=== PATIENT | male | born 1985 | race Caucasian/White ===

== ENCOUNTER 2018-05-07 15:42 | Observation (INO) ==
[2018-05-07 16:41] LABS: Eosinophils # 0.1 K/mcL (0.0-0.6); Hematocrit 51.1 % (37.5-50.1); Hemoglobin 17.7 g/dL (12.9-16.9); Mean Corpuscular HGB Conc 34.6 g/dL (31.6-35.5); Mean Corpuscular Hemoglobin 30.3 pg (28.0-33.3); Mean Corpuscular Volume 87.4 fL (83.0-100.0); Mean Platelet Volume 10.3 fL (9.4-12.4); Platelet Count 207 K/mcL (140-400); Red Blood Count 5.85 M/mcL (4.19-5.50)
--- NOTE | 2018-05-07 17:02 | Emergency Department Note ---
Disposition Clinical Impression: Hepatitis Disposition: Admitted As Inpatient Condition: Good Referrals: NONE,PCP [Primary Care Provider] - BRASS MOLDER MIZER [Other] Forms: ED Satisfaction Letter, Work/School Release Time of Disposition: 19:13 General Adult HPI - General Chief complaint: ED Abdominal Pain Stated complaint: Kidney problems Time Seen by Provider: 05/07/18 16:36 Source: patient Mode of arrival: ambulatory Limitations: no limitations - History of Present Illness HPI Narrative: This is a 33-year-old male who comes to emergency department reporting dark urine that has developed over the course of the last 7 days, accompanied by right flank pain that so worsened over the 7 days. He had vomiting 2 days ago after eating at a fast food restaurant, but feels better now. Pain Scale: 7 - Related Data Allergies Allergy/AdvReac Type Severity Reaction Status Date / Time No Known Allergies Allergy Verified 05/07/18 15:48 All systems ED: reviewed and negative except as stated. Gastrointestinal: Reports: abdominal pain, nausea, vomiting Physical Exam - General Limitations: no limitations General appearance: alert, in distress (In mild distress with right flank pain) - Head Head exam: atraumatic, normocephalic, normal inspection - Eye Eye exam: Present: normal appearance, PERRL, EOMI, scleral icterus. Absent: conjunctival injection - Chest Chest inspection: Present: normal inspection, symmetric chest wall rise - Respiratory Respiratory exam: Present: normal lung sounds bilaterally - Cardiovascular Cardiovascular exam: Present: regular rate, normal rhythm, normal heart sounds - Abdominal Exam Abdominal exam: Present: soft, Non-Tender - Extremities Exam Extremities exam: Present: normal inspection, full ROM. Absent: tenderness, pedal edema - Back Exam Back exam: Present: CVA tenderness (R). Absent: CVA tenderness (L) - Neurological Exam Neurological exam: Present: alert, oriented X3 - Psychiatric Psychiatric exam: Present: normal affect, normal mood - Skin Skin exam: Present: warm, dry, intact, normal color Course Course Narrative: This is a 33-year-old male with dark urine concerning for metabolic problems. Vital Signs Temperature 98.8 F 05/07/18 15:46 Pulse Rate 95 05/07/18 15:46 Respiratory Rate 16 05/07/18 15:46 Blood Pressure 137/82 05/07/18 15:46 O2 Sat by Pulse Oximetry 97 05/07/18 15:46 Temperature 98.8 F 05/07/18 15:46 Pulse Rate 95 05/07/18 15:46 Respiratory Rate 16 05/07/18 15:46 Blood Pressure 137/82 05/07/18 15:46 O2 Sat by Pulse Oximetry 97 05/07/18 15:46 Oxygen Delivery Oxygen Delivery Room Air Medical Decision Making - MDM Narrative Medical decision making narrative: I discussed this case with Dr. Celestin, who recommended an MRCP and also recommended a hepatitis panel. Hepatitis panel and IV fluid was ordered, and I discussed his case with the on- call hospitalist, who accepted him for admission. - Lab Data Lab results reviewed: Yes I reviewed the patient's lab results. Lab results narrative: CBC shows hemoconcentration at 17.7 and 51.1 BMP was unremarkable LFT was grossly abnormal with an AST elevated at 1763, a LT elevated greater than 500, and bilirubin elevated at 6.3 Result diagrams: 05/07/18 16:29 05/07/18 16:29 Lab Results 05/07/18 05/07/18 05/07/18 Range/Units 16:29 16:29 16:52 WBC 6.8 (4.3-11.1) K/mcL RBC 5.85 H (4.19-5.50) M/mcL Hgb 17.7 H (12.9-16.9) g/dL Hct 51.1 H (37.5-50.1) % MCV 87.4 (83.0-100.0) fL MCH 30.3 (28.0-33.3) pg MCHC 34.6 (31.6-35.5) g/dL RDW 14.0 (11.5-14.5) % Plt Count 207 (140-400) K/mcL MPV 10.3 (9.4-12.4) fL Seg Neutrophils % 55.0 % Lymphocytes % 41.0 % Monocytes % 3.0 % Eosinophils % 1.0 % Neutrophils # 3.7 (1.6-8.9) K/mcL Lymphocytes # 2.8 (0.6-4.6) K/mcL Monocytes # 0.2 (0.0-1.3) K/mcL Eosinophils # 0.1 (0.0-0.6) K/mcL Reactive Lymphocytes Present A (Not Present) Platelet Estimate Normal (Normal) Sodium 136 (136-145) mEq/L Potassium 3.5 (3.5-5.1) mEq/L Chloride 102 (98-107) mEq/L Carbon Dioxide 26 (23-29) mEq/L BUN 6 (6-20) mg/dL Creatinine 0.71 (0.70-1.30) mg/dL Est GFR ( Amer) > 60 (> 60) Est GFR (Non-Af Amer) > 60 (> 60) BUN/Creatinine Ratio 8 (6-26) Glucose 118 H (70-105) mg/dL Calculated Osmolality 281 (280-300) Calcium 8.7 (8.6-10.3) mg/dL Total Bilirubin 6.3 H (0.3-1.0) mg/dL Direct Bilirubin 4.9 H (0.0-0.2) mg/dL Indirect Bilirubin 1.4 H (0.0-1.2) mg/dL AST 1763 H (13-39) Units/L ALT > 500 H (7-52) Units/L Alkaline Phosphatase 194 H (34-104) Units/L Creatine Kinase 58 (30-223) Units/L Serum Total Protein 7.0 (6.4-8.9) g/dL Albumin 3.6 (3.5-5.7) g/dL Globulin 3.4 (2.4-3.5) g/dL Albumin/Globulin Ratio 1.1 (1.1-2.2) Lipase 23 (11-82) Units/L Urine Color Dark Yellow (Yellow) Urine Clarity Slightly Cloudy A (Clear) Urine pH 6.5 (5.0-8.0) pH Units Ur Specific [place] 1.020 (1.010-1.025) Urine Protein 100 H (Neg-Trace) mg/dL Urine Glucose (UA) 100 H (Normal) mg/dL Urine Ketones Trace H (Negative) mg/dL Urine Blood Negative (Negative) Urine Nitrite Negative (Negative) Urine Bilirubin Large H (Negative) Urine Urobilinogen Normal (Normal) mg/dL Ur Leukocyte Esterase Negative (Negative) Urine Microscopic RBC 0-3 (0-3) per hpf Urine Microscopic WBC 0-3 (0-3) per hpf Ur Squamous Epith Cells Moderate H (None-Few) per lpf Urine Bacteria Few (None-Few) per hpf Urine Mucus Moderate H (Few) Ur Culture Indicated? NO (NO) Critical Care Time Critical Care Time: No
[2018-05-07 17:06] LABS: Lymphocytes # 2.8 K/mcL (0.6-4.6); Monocytes # 0.2 K/mcL (0.0-1.3); Neutrophils # 3.7 K/mcL (1.6-8.9); Reactive Lymphocytes Present (Not Present)
[2018-05-07 17:07] LABS: Platelet Estimate Normal (Normal)
[2018-05-07 17:07] LABS: Bilirubin,Urine Large (Negative); Blood,Urine Negative (Negative); Clarity,Urine Slightly Cloudy (Clear); Glucose,Urine (UA) 100 mg/dL (Normal); Ketones,Urine Trace mg/dL (Negative); Leukocyte Esterase,Urine Negative (Negative); Nitrite,Urine Negative (Negative); PH,Urine 6.5 pH Units (5.0-8.0); Protein,Urine 100 mg/dL (Neg-Trace); Urobilinogen,Urine Normal (Normal)
[2018-05-07 17:15] LABS: Color,Urine Dark Yellow (Yellow)
[2018-05-07 17:20] LABS: RBC,Urine 0-3 per hpf (0-3); Squamous Epithelial Cell,Urine Moderate per lpf (None-Few); WBC,Urine 0-3 per hpf (0-3)
[2018-05-07 17:21] LABS: Bacteria,Urine Few per hpf (None-Few); Mucus,Urine Moderate (Few)
[2018-05-07 17:47] LABS: Alanine Aminotransferase > 500 Units/L (7-52); Albumin 3.6 g/dL (3.5-5.7); Alkaline Phosphatase 194 Units/L (34-104); Aspartate Amino Transferase 1763 Units/L (13-39); BUN/Creatinine Ratio 8 (6-26); Bilirubin,Direct 4.9 mg/dL (0.0-0.2); Bilirubin,Indirect 1.4 mg/dL (0.0-1.2); Bilirubin,Total 6.3 mg/dL (0.3-1.0); Blood Urea Nitrogen 6 mg/dL (6-20); Calcium 8.7 mg/dL (8.6-10.3); Carbon Dioxide 26 mEq/L (23-29); Chloride 102 mEq/L (98-107); Glucose 118 mg/dL (70-105); Osmolality,Calculated 281 (280-300); Potassium 3.5 mEq/L (3.5-5.1); Sodium 136 mEq/L (136-145); eGFR For Non-African Americans > 60 (> 60)
[2018-05-07 17:48] LABS: Albumin/Globulin Ratio 1.1 (1.1-2.2); Creatine Kinase 58 Units/L (30-223); Globulin 3.4 g/dL (2.4-3.5); Lipase 23 Units/L (11-82)
[2018-05-07] MEDS ORDERED: 0.9 % Sodium Chloride 1,000 ML IVC ONE (19:11)
[2018-05-07] MEDS ORDERED: 0.9 % Sodium Chloride 1,000 ML IVC SCH (19:15)
[2018-05-07] MEDS ORDERED: Ketorolac 30 MG/ML VIAL IVP ONE (20:05)
[2018-05-07] MEDS ORDERED: Ibuprofen 600 MG TABLET PO PRN (20:05)
[2018-05-07] MEDS ORDERED: Ondansetron 4 MG/2 ML VIAL IVP PRN (20:09)
--- NOTE | 2018-05-07 20:15 | Internal Med History&Physical ---
Date of Encounter: 05/07/18 Time of Encounter: 20:13 Internal Medicine - H&P: HPI Chief complaint: Flank pain Plans for Post Hospital Care: Home History of present illness: Damian Waite is a 33-year-old man who reports a history of illicit drug use (crystal meth) who presents to the ER with the complaint of right flank pain for the past week accompanied by dark urine. He says that over the last few days he has felt more nauseated and started vomiting. He has also lost his appetite and craving for cigarettes. 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 On arrival here he was clinically and hemodynamically stable and CT imaging of his abdomen was done as there was an initial concern for kidney stones in the ER however this was unremarkable except for cholelithiasis. His labs however came back notable for significant elevation in his LFTs. Dr. Celestin was contacted and recommended he have an MRCP done. At this time he denies having fever feeling chills. He has also not vomited today but says he has not eaten anything. He denies any other medical or surgical history. He denies being on any prescribed or [id number] medications at this time. He reports occasional alcohol use. Past Med Surg Social Fam HX - Past Medical History Medical history: no medical history Psychiatric history: no psych history - Social History Smoking Status: Light tobacco smoker Smokeless Tobacco Status: No Alcohol use: occasionally Drug use: none Internal Medicine - H&P: Meds 3 Allergy/AdvReac Type Severity Reaction Status Date / Time No Known Allergies Allergy Verified 05/07/18 15:48 All Systems PM: A 10-system review of systems was performed and is negative for pertinent findings except as documented above in the HPI. - Constitutional Vitals: Temp Pulse Resp BP Pulse Ox 98.8 F 95 16 137/82 97 05/07/18 19:10 05/07/18 19:10 05/07/18 19:10 05/07/18 19:10 05/07/18 19:10 Exam: Vitals: Reviewed General: Large well-developed male lying comfortably in bed in no acute distress Skin: Warm and supple with multiple tattoos noted. HEENT: Moist mucous membranes. No conjunctivae pallor. Scleral icterus seen. Neck: No lymphadenopathy. No JVD. No carotid bruits. No palpable thyroid. Chest: Normal thoracic expansion. Normal breath sounds. Clear to auscultation. Heart: Normal S1 & S2; rhythmic. No rubs or murmurs. Abdomen: Non-distended, soft and non-tender to palpation. No peritoneal reaction. Liver is normal in size. Spleen is not palpable. Point tenderness on palpation of the right CVA area. Extremities: No clubbing, cyanosis or edema. No calf tenderness. Normal distal pulses. Neurological: Awake, alert and oriented to person, place and time. No focal deficits. Psych: Affect appropriate. Internal Med - H&P Results - Labs CBC & Chem 7: 05/07/18 16:29 05/07/18 16:29 - Assessment and plan (1) Hepatitis Current Visit: Yes Status: Acute Assessment and plan: Notable elevation in LFTs both and nonobstructive and hepatocellular pattern. Given his history and presentation suspect he may have acute hepatitis A. We will send hepatitis viral profile and obtain a liver ultrasound in the morning. MRCP already ordered as recommended by GI over the phone. We will give IV fluid resuscitation and monitor LFTs. Avoid hepatotoxic medications. (2) Abdominal pain Current Visit: Yes Status: Acute Assessment and plan: Due to the above. We will give pain medications as needed with NSAIDs and low dose opiates if necessary. Qualifiers: Abdominal location: right upper quadrant Qualified Code(s): R10.11 - Right upper quadrant pain (3) Substance use disorder Current Visit: Yes Status: Acute Assessment and plan: Will benefit from licensed clinical social worker intervention. He was counseled accordingly. We will obtain a UDS at this time for assessment for other substances not reported. (4) Polycythemia Current Visit: Yes Status: Acute Assessment and plan: Suspect secondary to dehydration from upper GI losses. We will repeat CBC after fluid resuscitation. (5) DVT prophylaxis Current Visit: Yes Status: Acute Assessment and plan: Subcutaneous heparin indicated. - Time Spent With Patient Total time spent is greater than 50% in coordination of care (as documented) at patient's floor/unit and/or counseling patient: Greater than 35 minutes
[2018-05-07 20:22] LABS: Amphetamine Screen,Urine Positive ng/mL (Cutoff=1000); Barbiturate Screen,Urine Negative ng/mL (Cutoff=200); Benzodiazepines Screen,Urine Negative ng/mL (Cutoff=200); Cannabinoid Screen,Urine Positive ng/mL (Cutoff = 50); Cocaine Screen,Urine Negative ng/mL (Cutoff= 300); Opiate Screen,Urine Negative ng/mL (Cutoff=300); Phencyclidine Screen,Urine Negative ng/mL (Cutoff=25)
[2018-05-07] MEDS: Ringers Solution, Lactated 1,000 ML IVC SCH (21:12)
[2018-05-07] MEDS: *HR* Heparin 5,000 UNIT/ML VIAL SQ SCH (21:13)
[2018-05-07] MEDS: traMADol 50 MG TABLET PO PRN (22:55)
[2018-05-08] MEDS: Ringers Solution, Lactated 1,000 ML IVC SCH ×2 (01:26→04:53)
[2018-05-08] MEDS: *HR* Heparin 5,000 UNIT/ML VIAL SQ SCH ×3 (04:53→22:16)
[2018-05-08 07:30] LABS: INR 1.3; Prothrombin Time 14.4 Seconds (9.4-12.1)
[2018-05-08 07:50] LABS: Basophils # 0.1 K/mcL (0.0-0.2); Eosinophils # 0.1 K/mcL (0.0-0.6); Hematocrit 45.2 % (37.5-50.1); Hemoglobin 15.9 g/dL (12.9-16.9); Mean Corpuscular HGB Conc 35.2 g/dL (31.6-35.5); Mean Corpuscular Hemoglobin 30.3 pg (28.0-33.3); Mean Corpuscular Volume 86.1 fL (83.0-100.0); Mean Platelet Volume 11.5 fL (9.4-12.4); Platelet Count 210 K/mcL (140-400); Red Blood Count 5.25 M/mcL (4.19-5.50); Red Cell Distribution Width 14.5 % (11.5-14.5)
[2018-05-08 08:13] LABS: Alanine Aminotransferase > 500 Units/L (7-52); Albumin 3.1 g/dL (3.5-5.7); Albumin/Globulin Ratio 1.1 (1.1-2.2); Alkaline Phosphatase 158 Units/L (34-104); Aspartate Amino Transferase 1112 Units/L (13-39); BUN/Creatinine Ratio 7 (6-26); Bilirubin,Direct 5.6 mg/dL (0.0-0.2); Bilirubin,Total 7.6 mg/dL (0.3-1.0); Blood Urea Nitrogen 5 mg/dL (6-20); Calcium 8.7 mg/dL (8.6-10.3); Carbon Dioxide 27 mEq/L (23-29); Chloride 105 mEq/L (98-107); Globulin 2.9 g/dL (2.4-3.5); Glucose 86 mg/dL (70-105); Magnesium 1.9 mg/dL (1.6-2.6); Osmolality,Calculated 281 (280-300); Potassium 3.7 mEq/L (3.5-5.1); Sodium 137 mEq/L (136-145); eGFR For Non-African Americans > 60 (> 60)
[2018-05-08] MEDS: 0.9 % Sodium Chloride 1,000 ML IVC SCH ×2 (11:17→23:39)
[2018-05-08 12:02] LABS: Lymphocytes # 3.7 K/mcL (0.6-4.6); Monocytes # 0.5 K/mcL (0.0-1.3); Neutrophils # 1.6 K/mcL (1.6-8.9); Platelet Estimate Normal (Normal)
--- NOTE | 2018-05-08 12:37 | Internal Med Progress Note ---
Hospitalist Progress Note - Encounter Date of Encounter: 05/08/18 Time of Encounter: 10:55 - Subjective Interval History: H&P reviewed. Patient with history of illicit drug use is admitted for right- sided abdominal pain and deranged liver function test. AST improved from 1700 - > 1100 but total bilirubin was slightly increased from 6.3 to 7.6. US and MRCP done this morning did not show any evidence of biliary obstruction but gallbladder morphology probably compatible with hepatitis versus mononucleosis. Patient reports mild improvement in his abdominal pain and wants to eat. No N/V , fever/chills. - Exam Vitals: Temp Pulse Resp BP Pulse Ox 97.5 F L 73 15 132/75 98 05/08/18 11:16 05/08/18 11:16 05/08/18 11:16 05/08/18 11:16 05/08/18 11:16 Exam: General: Alert and oriented, not in acute distress. HEENT:EOM, pupils equal, round and reactive. Slightly icteric sclera Cardiovascular:Normal S1 & S2, No JVD. Pulse regular. Lungs: clear to auscultation, no wheezes/rales Abdomen:Soft, non-tender, no rigidity. No spider nevi. No shifting dullness. Extremities:No deformity or swelling Neurological:Normal cognition and motor skills. Non-focal. No asterixis. - Assessment and Plan (1) Hepatitis Current Visit: Yes Status: Acute Assessment and Plan: ?viral hepatitis, panel pending US and MRCP result as above, no evidence of ongoing biliary obstruction start clears trend LFT -> if worsens, may need GI eval symptomatic mx (2) Abdominal pain Current Visit: Yes Status: Acute Assessment and Plan: as above (3) Substance use disorder Current Visit: Yes Status: Acute Assessment and Plan: Urine drug screen positive for amphetamine and marijuana SW consult (4) DVT prophylaxis Current Visit: Yes Status: Acute Assessment and Plan: Subcutaneous heparin - Time Spent with Patient Total time spent is greater than 50% in coordination of care (as documented) at patient's floor/unit and/or counseling patient: Plan of Care Discussed with: patient Internal Medicine: Result - Labs CBC & Chem 7: 05/08/18 07:03 05/08/18 07:03 Labs: Short CBC 05/08/18 Range/Units 07:03 WBC 5.9 (4.3-11.1) K/mcL Hgb 15.9 D (12.9-16.9) g/dL Hct 45.2 (37.5-50.1) % Plt Count 210 (140-400) K/mcL Neutrophils # 1.6 (1.6-8.9) K/mcL BMP 05/08/18 07:03 Sodium 137 Potassium 3.7 Chloride 105 Carbon Dioxide 27 BUN 5 L Creatinine 0.74 Glucose 86 Calcium 8.7 Liver Function 05/08/18 Range/Units 07:03 Total Bilirubin 7.6 H (0.3-1.0) mg/dL Direct Bilirubin 5.6 H (0.0-0.2) mg/dL AST 1112 H (13-39) Units/L ALT > 500 H (7-52) Units/L Alkaline Phosphatase 158 H (34-104) Units/L Albumin 3.1 L (3.5-5.7) g/dL - ABG Interpretation ABG results: PT/INR, D-dimer PT 14.4 Seconds (9.4-12.1) H 05/08/18 07:03 - Impressions Impressions Liver Ultrasound 05/08/18 09:00 IMPRESSION: Heterogeneous increased echogenicity throughout the gallbladder likely relates to combination of sludge and stones. D/ / Mike Gonzalez MD / Mike Gonzalez MD Interpreting Provider: Mike Gonzalez MD Abdomen MRI 05/08/18 18:59 IMPRESSION: Splenomegaly as measured above. Diffuse gallbladder wall thickening appears to be present with near complete collapse of the central lumen. Gallbladder wall thickening again may relate to hepatitis or alternatively constellation of findings may relate to mononucleosis which can occasionally be associated with diffuse gallbladder wall thickening. D/ / Mike Gonzalez MD / Mike Gonzalez MD Interpreting Provider: Mike Gonzalez MD Consult Discharge Plan - Plan Referrals: NONE,PCP [Primary Care Provider] - RN WOUND MIZER [Other] (2) Abdominal pain Qualifiers: Abdominal location: right upper quadrant Qualified Code(s): R10.11 - Right upper quadrant pain
[2018-05-08] MEDS: traMADol 50 MG TABLET PO PRN (13:05)
[2018-05-09] MEDS: *HR* Heparin 5,000 UNIT/ML VIAL SQ SCH ×3 (06:45→21:36)
[2018-05-09 06:52] LABS: Basophils % 0.7 %; Eosinophils # 0.1 K/mcL (0.0-0.6); Eosinophils % 1.2 %; Hematocrit 44.3 % (37.5-50.1); Hemoglobin 15.2 g/dL (12.9-16.9); Immature Granulocytes % 0.7 % (0-4); Lymphocytes # 2.2 K/mcL (0.6-4.6); Lymphocytes % 36.9 %; Mean Corpuscular HGB Conc 34.3 g/dL (31.6-35.5); Mean Corpuscular Hemoglobin 30.2 pg (28.0-33.3); Mean Corpuscular Volume 88.1 fL (83.0-100.0); Monocytes # 0.5 K/mcL (0.0-1.3); Monocytes % 8.7 %; Neutrophils # 3.1 K/mcL (1.6-8.9); Platelet Count 171 K/mcL (140-400); Red Blood Count 5.03 M/mcL (4.19-5.50); Red Cell Distribution Width 14.2 % (11.5-14.5); Segmented Neutrophils % 51.8 %
[2018-05-09 07:00] LABS: INR 1.2; Prothrombin Time 13.5 Seconds (9.4-12.1)
[2018-05-09 07:25] LABS: Platelet Estimate Normal (Normal); Reactive Lymphocytes Present (Not Present)
[2018-05-09 07:30] LABS: Alanine Aminotransferase > 500 Units/L (7-52); Albumin 3.1 g/dL (3.5-5.7); Albumin/Globulin Ratio 1.1 (1.1-2.2); Alkaline Phosphatase 177 Units/L (34-104); Aspartate Amino Transferase 695 Units/L (13-39); BUN/Creatinine Ratio 6 (6-26); Bilirubin,Total 9.1 mg/dL (0.3-1.0); Blood Urea Nitrogen 4 mg/dL (6-20); Calcium 8.5 mg/dL (8.6-10.3); Carbon Dioxide 26 mEq/L (23-29); Chloride 107 mEq/L (98-107); Globulin 2.9 g/dL (2.4-3.5); Glucose 94 mg/dL (70-105); Osmolality,Calculated 281 (280-300); Sodium 137 mEq/L (136-145); eGFR For Non-African Americans > 60 (> 60)
[2018-05-09] MEDS ORDERED: 0.9 % Sodium Chloride 1,000 ML IVC SCH (08:45)
--- NOTE | 2018-05-09 10:10 | Internal Med Progress Note ---
Hospitalist Progress Note - Encounter Date of Encounter: 05/09/18 Time of Encounter: 09:00 - Subjective Interval History: 33 M with polysubstance abuse admitted to obs and being managed for hepatitis Hep panel is pending No new complains or events overnight Urine is clearing, still jaundiced - Exam Vitals: Temp Pulse Resp BP Pulse Ox 98.4 F 71 14 133/74 99 05/09/18 07:14 05/09/18 07:14 05/09/18 07:14 05/09/18 07:14 05/09/18 07:14 Exam: Constitutional: No acute distress, Alert Psych: Normal affect HEENT: NCAT, EOMI, icteric sclera Neck: no neck stiffness Cardio: S1, S2, RRR, no m/g/r Resp: clear to auscultation bilaterally Chest: equal chest movement bilaterally Abd: soft, non-tender/non distended, positive bowel sounds, no guarding/rebound/ rigidity Extremities: tattoos+, no edema Neuro: no focal deficits appreciated - Assessment and Plan (1) Hepatitis Current Visit: Yes Status: Acute Assessment and Plan: viral hepatitis, panel pending US and MRCP result unremarkable, no evidence of ongoing biliary obstruction advance diet LFTs slowly improving Await hep panel Continue IVF and continue to monitor (2) Abdominal pain Current Visit: Yes Status: Acute Assessment and Plan: resolved (3) Substance use disorder Current Visit: Yes Status: Chronic Assessment and Plan: Urine drug screen positive for amphetamine and marijuana SW consult (4) DVT prophylaxis Current Visit: Yes Status: Acute Assessment and Plan: Subcutaneous heparin - Time Spent with Patient Total time spent is greater than 50% in coordination of care (as documented) at patient's floor/unit and/or counseling patient: Plan of Care Discussed with: patient Internal Medicine: Result - Labs CBC & Chem 7: 05/09/18 06:37 05/09/18 06:37 Labs: Short CBC 05/08/18 05/09/18 Range/Units 07:03 06:37 WBC 6.0 (4.3-11.1) K/mcL Hgb 15.2 (12.9-16.9) g/dL Hct 44.3 (37.5-50.1) % Plt Count 171 (140-400) K/mcL Neutrophils # 1.6 3.1 (1.6-8.9) K/mcL BMP 05/09/18 06:37 Sodium 137 Potassium 4.0 Chloride 107 Carbon Dioxide 26 BUN 4 L Creatinine 0.69 L Glucose 94 Calcium 8.5 L Liver Function 05/09/18 Range/Units 06:37 Total Bilirubin 9.1 H (0.3-1.0) mg/dL AST 695 H (13-39) Units/L ALT > 500 H (7-52) Units/L Alkaline Phosphatase 177 H (34-104) Units/L Albumin 3.1 L (3.5-5.7) g/dL - ABG Interpretation ABG results: PT/INR, D-dimer PT 13.5 Seconds (9.4-12.1) H 05/09/18 06:37 - Impressions Impressions Liver Ultrasound 05/08/18 09:00 IMPRESSION: Heterogeneous increased echogenicity throughout the gallbladder likely relates to combination of sludge and stones. D/ / Mike Gonzalez MD / Mike Gonzalez MD Interpreting Provider: Mike Gonzalez MD Abdomen MRI 05/08/18 18:59 IMPRESSION: Splenomegaly as measured above. Diffuse gallbladder wall thickening appears to be present with near complete collapse of the central lumen. Gallbladder wall thickening again may relate to hepatitis or alternatively constellation of findings may relate to mononucleosis which can occasionally be associated with diffuse gallbladder wall thickening. D/ / Mike Gonzalez MD / Mike Gonzalez MD Interpreting Provider: Mike Gonzalez MD Consult Discharge Plan - Plan Referrals: MARINE OILER MIZER [Other] NONE,PCP [Primary Care Provider] - (2) Abdominal pain Qualifiers: Abdominal location: right upper quadrant Qualified Code(s): R10.11 - Right upper quadrant pain
[2018-05-09 14:22] LABS: Hepatitis B Surface Antigen Nonreactive (Nonreactive)
[2018-05-09 16:11] LABS: Hepatitis A Antibody IgM Reactive (Nonreactive)
[2018-05-09 16:12] LABS: Hepatitis C Virus Antibody Reactive (Nonreactive)
[2018-05-09] MEDS: 0.9 % Sodium Chloride 1,000 ML IVC SCH (21:36)
[2018-05-10 02:01] LABS: Hepatitis B Core IgM Reactive (Nonreactive)
[2018-05-10 04:07] VITALS: BP 127/78
[2018-05-10 05:46] LABS: Alanine Aminotransferase > 500 Units/L (7-52); Albumin 3.2 g/dL (3.5-5.7); Albumin/Globulin Ratio 1.1 (1.1-2.2); Alkaline Phosphatase 170 Units/L (34-104); Aspartate Amino Transferase 536 Units/L (13-39); BUN/Creatinine Ratio 6 (6-26); Bilirubin,Total 10.4 mg/dL (0.3-1.0); Blood Urea Nitrogen 4 mg/dL (6-20); Calcium 8.5 mg/dL (8.6-10.3); Carbon Dioxide 22 mEq/L (23-29); Chloride 108 mEq/L (98-107); Globulin 2.9 g/dL (2.4-3.5); Glucose 84 mg/dL (70-105); Osmolality,Calculated 280 (280-300); Potassium 3.9 mEq/L (3.5-5.1); Sodium 137 mEq/L (136-145); Total Protein 6.1 g/dL (6.4-8.9); eGFR For Non-African Americans > 60 (> 60)
[2018-05-10] MEDS: *HR* Heparin 5,000 UNIT/ML VIAL SQ SCH (06:19)
[2018-05-10] MEDS: 0.9 % Sodium Chloride 1,000 ML IVC SCH (06:19)
--- NOTE | 2018-05-10 09:53 | Discharge Summary ---
- NOTES TO OUTPATIENT PROVIDER Notes to Outpatient Provider: Admitted for acute hepatitis with hyperbilirubinemia, secondary to polysubstance abuse , he has IgM to Hep A and B and chronic hep C. Lfts are improving with conservative management, renal function is stable and patient is discharged home with recommendations to follow up with PCP, and educate partner on vaccinations, as well as counselled on illicit drug use cessation. verbalized understanding of plan of care Date of Encounter: 05/10/18 Time of Encounter: 08:50 - Discharge Diagnosis (1) Hepatitis Priority: Primary Status: Acute (2) Abdominal pain Priority: Primary Status: Resolved Qualifiers: Abdominal location: right upper quadrant Qualified Code(s): R10.11 - Right upper quadrant pain (3) Substance use disorder Priority: Secondary Status: Chronic (4) DVT prophylaxis Priority: Primary Status: Resolved Hospital course: Mr. Waite is a 33 year old male Admitted for acute hepatitis with hyperbilirubinemia, secondary to polysubstance abuse , he has IgM to Hep A and B and chronic hep C. Lfts are improving with conservative management, renal function is stable and patient is discharged home with recommendations to follow up with PCP, and educate partner on vaccinations, as well as counselled on illicit drug use cessation. verbalized understanding of plan of care Discharge discussed with: patient, nurse - Time Spent with Patient Total time spent providing and/or coordinating discharge services: Less than 30 minutes - Discharge Medications Home Medications: No Known Home Drugs 05/08/18 [History] Allergies/Adverse Reactions: 3 Allergy/AdvReac Type Severity Reaction Status Date / Time No Known Allergies Allergy Verified 05/08/18 20:32 Date of admission: 05/07/18 19:24 Primary care physician: PCP NONE Consults: 05/08/18 12:39 Consult to [facility] Apprentice [CONS] Routine Reason for SW Consult: Polysubstance abuse Discharging clinician: José Luis Glez Anticipated date of discharge: 05/10/18 - Constitutional Vitals: Temp Pulse Resp BP Pulse Ox 98.1 F 63 16 127/78 98 05/10/18 06:47 05/10/18 06:47 05/10/18 06:47 05/10/18 06:47 05/10/18 06:47 General appearance: Present: A&O X 3, morbidly obese, pleasant, no acute distress Exam: see below - Head Head exam: Present: atraumatic, normocephalic - Eye Eye exam: Present: PERRL, scleral icterus, conjuntiva pink Pupils: Present: PERRL - Neck Neck exam general surgery: Present: supple, trachea midline. Absent: lymphadenopathy - Respiratory Respiratory exam: Present: CTAB. Absent: accessory muscle use, rales, rhonchi, wheezes - Cardiovascular Cardiovascular exam: Present: RRR, +S1, +S2. Absent: diastolic murmur, gallop, rubs, systolic murmur - GI/Abdominal GI/Abdominal exam: Present: normal bowel sounds, soft, no peritoneal signs. Absent: distended, tenderness - Extremities Exam Extremities exam: Present: warm, radial pulses palpable and symmetrical. Absent : calf tenderness, cyanotic, pedal edema - Neurological Exam Neurological exam: Present: alert, CN II-XII intact, oriented X3, no focal deficits. Absent: pronater drift, facial droop, speech deficit - Skin Skin exam: Present: dry. Absent: normal color - Patient Status Disposition: Home, Self-Care Condition: Good Functional capacity at discharge: independent ambulation Overall status at discharge: patient is progressing back to baseline - Discharge Instructions Follow Up With: Cleveland Kyle DO [Partnered Physician] - 05/24/18 2:00 pm (Please bring a photo ID, insurance card and any medications you are on. You will need to bring the new patient packet filled out you will get in the mail. If you need to cancel, please give a 24 hour notice. Thank you) Additional Instructions: Follow up with PCP for viral PCR load and for recommendation for treatment if willing - Diet and Activity Activity: resume usual activities as tolerated Diet: regular diet
== END 2018-05-10 11:09 | disposition home or self-care (01) ==
LOC: EMEROOARM 15:42 → INTOOBSV 19:24 → 3ANU 19:24 → SUATTDRO 19:24 → 3ANU 20:40
PROVIDERS: ADMIT Internal Medicine; ATTEND Internal Medicine